=== PATIENT | female | born 1965 | race Caucasian/White ===

== ENCOUNTER 2019-07-04 18:27 | Emergency (ER) | payer SELFPAY ==
[~2019-07-04] VITALS: Ht 162 cm; Wt 120.0 kg
[2019-07-04] MEDS ORDERED: PANT40TA3 (18:51)
[2019-07-04] MEDS ORDERED: DULO60CA59 (18:51)
[2019-07-04] MEDS ORDERED: APIX5TAB PO (18:51)
[2019-07-04] MEDS ORDERED: HYDR-3820 (18:51)
[2019-07-04] MEDS ORDERED: ATEN25TA (18:51)
[2019-07-04] MEDS ORDERED: ALPR0.5T7 (18:51)
[2019-07-04] MEDS ORDERED: SERT50TA2 PO (18:51)
--- NOTE | 2019-07-04 18:58 | ED Lower Extremity ---
General Chief Complaint: Lower Extremity Stated Complaint: R LEG PAIN Nursing Triage Note: PT CO OF R KNEE PAIN IS AFRAID SHE MAY HAVE A BLOOD CLOT Nursing Sepsis Screen: No Definite Risk Source: patient, other Exam Limitations: no limitations History of Present Illness Date Seen by Provider: Jul 04, 2019 Time Seen by Provider: 18:42 Initial Comments The patient presents to ER by private conveyance with chief complaint of pain medial to her right knee and distal thigh radiating upwards towards her pelvis. 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 She is still on Eliquis. She smokes cigarettes about a pack per day. She does not use hormone replacement therapy. She's not noticed any significant swelling numbness or tingling in her right leg. No chest pain shortness of breath. Allergies and Home Medications Allergies Coded Allergies: No Known Drug Allergies (Unverified , 07/04/19) Home Medications Apixaban 5 Mg Tablet, Unknown Dose PO BID, (Reported) Patient Home Medication List Home Medication List Reviewed: Yes Review of Systems Constitutional: No chills, No diaphoresis EENTM: No hearing loss, No ear pain Respiratory: No cough, No short of breath Cardiovascular: No chest pain, No edema Gastrointestinal: No abdominal pain, No constipation, No nausea, No vomiting Genitourinary: No discharge, No dysuria, No frequency Musculoskeletal: see HPI, joint pain Skin: see HPI All Other Systems Reviewed Negative Unless Noted: Yes Past Enkcpnt-Zpefzk-Tdznoj Hx Patient Social History Alcohol Use: Denies Use Recreational Drug Use: No Smoking Status: Current Everyday Smoker Type Used: Cigarettes Recent Foreign Travel: No Contact w/Someone Who Travel: No Recent Infectious Disease Expo: No Recent Hopitalizations: No Physical Abuse: No Sexual Abuse: No Past Medical History Adenoidectomy, Gallbladder, Hysterectomy, Tonsillectomy Respiratory: No Cardiac: Yes Hypertension Neurological: No Genitourinary: No Gastrointestinal: Yes Gastroesophageal Reflux Musculoskeletal: Yes (HX OF BLOOD CLOT) Arthritis Endocrine: No HEENT: No Cancer: Yes (VULVECTOMY) Psychosocial: No Physical Exam Vital Signs Vital Signs - First Documented 07/04/19 18:30 Temp 36.4 Pulse 75 Resp 18 B/P (MAP) 117/56 (76) Pulse Ox 99 Capillary Refill : Less Than 3 Seconds Height, Weight, BMI Height: '" Weight: lbs. oz. kg; 45.00 BMI Method: General Appearance: WD/WN, other (anxiety) HEENT: PERRL/EOMI, pharynx normal Cardiovascular: normal peripheral pulses, regular rate, rhythm Respiratory: no respiratory distress, no accessory muscle use Hips: bilateral hip non-tender, bilateral hip normal inspection, bilateral hip normal range of motion, bilateral hip no evidence of injury Knees: bilateral knee non-tender, bilateral knee normal inspection, bilateral knee normal range of motion, bilateral knee no evidence of injury Feet: bilateral foot non-tender, bilateral foot normal inspection, bilateral foot normal range of motion, bilateral foot no evidence of injury Progress/Results/Core Measures Results/Orders Lab Results Laboratory Tests Test 07/04/19 19:15 Range/Units D-Dimer 0.63 H 0.00-0.49 UG/ML My Orders Orders - JOCELIN LERMA F[employer] (07/04/19 19:04) Vital Signs/I&O 07/04/19 18:30 Temp 36.4 Pulse 75 Resp 18 B/P (MAP) 117/56 (76) Pulse Ox 99 Blood Pressure Mean: 76 POS Progress Progress Note #1: Time: 19:05 Progress Note Levi DVT score she received 1.4 history of DVT. We will do a d-dimer for her medium risk profile. If the DVT is unhelpful be can set her up for outpatient ultrasound. The fact that she is on Eliquis makes a DVT exceptionally unlikely. There are no clinical physical exam findings consistent with DVT. Her right calf greatest dimension is 41 cm and left calf is 41.5 cm. There are also no varicosities in the area. She does offer that she has a history of Gillis's cyst behind her right knee. Progress Note #2: Time: 20:17 Progress Note D-dimer failed to rule out DVT. She's already on Eliquis so we'll have her continue taking that and schedule an outpatient ultrasound tomorrow with results called to the on-call ER doctor. Departure Impression Primary Impression: Pain of right lower extremity Additional Impression: History of DVT (deep vein thrombosis) Disposition: 01 HOME, SELF-CARE Condition: Stable Departure-Patient Inst. Decision time for Depature: 20:18 Referrals: GENARO RYAN MD (PCP/Family) Primary Care Physician Patient Instructions: How to Prevent Blood Clots Add. Discharge Instructions: Please keep taking her Eliquis as prescribed. Call the phone number for registration on the top of your outpatient order sheet tomorrow morning and request an ultrasound appointment. The results will be called to the on-call ER doctor and if they are positive they will help direct you. If the results are negative then I would encourage you to follow-up with Dr. Ryan to discuss other possibilities such as musculoskeletal, Gillis's cyst, etc. Please return to the ER immediately if you experience shortness of breath, chest pain or other worrisome symptoms. All discharge instructions reviewed with patient and/or family. Voiced unders tanjewel. JOCELIN LERMA Jul 04, 2019 18:58 POS
--- NOTE | 2019-07-04 19:12 | NUR ---
Recieved report from Payam Tellez RN to assume care of pt.
[2019-07-04] MEDS: ACETAMINOPHEN 500 MG TAB (TYLENOL) PO ONE ×2 (20:38→20:40)
[2019-07-04 20:42] VITALS: BP 129/81
== END 2019-07-04 20:42 | disposition home or self-care (01) ==
LOC: EDUNIT# 18:27 → ER 18:28
DX: M79.604 Pain in right leg (principal); I10 Essential (primary) hypertension; K21.9 Gastro-esophageal reflux disease without esophagitis; F17.210 Nicotine dependence, cigarettes, uncomplicated; Z86.718 Personal history of other venous thrombosis and embolism; Z79.01 Long term (current) use of anticoagulants; Z90.89 Acquired absence of other organs
CPT/HCPCS: 36415; 85379